=== PATIENT | male | born 1985 | race Two or more races ===

== ENCOUNTER 2024-06-12 11:33 | Emergency (ER) | payer MEDICAID, OTHER ==
[~2024-06-12] VITALS: Ht 180.3 cm; Wt 114.0 kg
[2024-06-12 13:01] VITALS: BP 122/78; PULSE 90; RESP 18; TEMP 98.4; O2SAT 95
[2024-06-12] MEDS ORDERED: METH4PAK PO (13:02)
[2024-06-12] MEDS ORDERED: HYD25TP TOP (13:02)
== END 2024-06-12 13:23 | disposition home or self-care (01) ==
LOC: ER 11:33
DX: L30.9 Dermatitis, unspecified (principal); Z79.899 Other long term (current) drug therapy; Z88.0 Allergy status to penicillin